=== PATIENT | female | born 1955 | race Caucasian/White ===

== ENCOUNTER 2021-04-29 08:37 | Emergency (ER) | payer MEDICARE, OTHER ==
[2021-04-29] MEDS ORDERED: Silver Nitrate Applicator Each TOP ONE (09:38)
--- NOTE | 2021-04-29 09:52 | EDM.PDOC ---
ED HPI GENERAL MEDICAL PROBLEM - General Chief Complaint: Laceration Stated Complaint: R MIDDLE FINGER CUT WITH KNIFE AND WON'T STOP BLEE Time Seen by Provider: 04/29/21 09:37 Source of Information: Reports: Patient, RN Notes Reviewed History Limitations: Reports: No Limitations - History of Present Illness INITIAL COMMENTS - FREE TEXT/NARRATIVE: 66-year-old female presents emergency department today following laceration she avulsed the distal tip of her middle finger on her right hand with a mandolin Right Finger-Middle Pain Score (Numeric/FACES): 2 - Related Data Allergies Allergy/AdvReac Type Severity Reaction Status Date / Time phenytoin [From Dilantin] Allergy Rash Verified 04/29/21 09:30 Home Meds: Home Meds Cartilage/Collagen/Bor/Hyalur [Joint Health Tablet] 1 tab PO DAILY 04/29/21 [History] Lisinopril/Hydrochlorothiazide [Lisinopril-Hctz 10-12.5 mg Tab] 1 tab PO DAILY 04/29/21 [History] Multivitamin 1 tab PO DAILY 04/29/21 [History] Ubidecarenone [COQ-10] 1 tab PO DAILY 04/29/21 [History] atorvaSTATin [Lipitor] 10 mg PO BEDTIME 04/29/21 [History] buPROPion HCL [Wellbutrin Xl] 300 mg PO DAILY 04/29/21 [History] Past Medical History HEENT History: Reports: Cataract, Impaired Vision Cardiovascular History: Reports: High Cholesterol, Hypertension Respiratory History: Reports: Sleep Apnea 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 - Past Surgical History HEENT Surgical History: Reports: Cataract Surgery GI Surgical History: Reports: Cholecystectomy Social & Family History - Tobacco Use Tobacco Use Status *Q: Never Tobacco User - Caffeine Use Caffeine Use: Reports: Coffee - Recreational Drug Use Recreational Drug Use: No ED ROS GENERAL - Review of Systems Review Of Systems: See Below Constitutional: Reports: No Symptoms Skin: Reports: Wound ED EXAM, SKIN/RASH Exam: See Below Text/Narrative:: Semination middle finger right hand she does have just the distal tip of the finger missing and the problem is it keeps oozing this is controlled with the tourniquet silver nitrate Exam Limited By: No Limitations General Appearance: Alert, WD/WN, No Apparent Distress Course - Vital Signs Last Recorded V/S: Last Vital Signs Temp 97 F 04/29/21 09:28 Pulse 91 04/29/21 09:28 Resp 14 04/29/21 09:28 BP 150/85 H 04/29/21 09:28 Pulse Ox 97 04/29/21 09:28 - Orders/Labs/Meds Meds: Medications Discontinued Medications Generic Name Dose Route Start Last Admin Trade Name Amrik PRN Reason Stop Dose Admin Silver Nitrate 1 each 04/29/21 09:38 04/29/21 09:51 Silver Nitrate Applicator Each TOP 04/29/21 09:39 1 each ONETIME ONE Administration Departure - Departure Time of Disposition: 10:22 Disposition: Home, Self-Care 01 Condition: Fair Clinical Impression: Traumatic amputation of tip of right middle finger Qualifiers: Encounter type: initial encounter Qualified Code(s): S68.112A - Complete traumatic metacarpophalangeal amputation of right middle finger, initial encounter - Discharge Information Instructions: Traumatic Finger Amputation Referrals: PCP,None [Primary Care Provider] - Forms: ED Department Discharge Additional Instructions: Continue to use the silver nitrate as needed, follow-up with your primary care as needed, call return to the emergency department worsening symptoms Sepsis Event Note (ED) - Evaluation Sepsis Screening Result: No Definite Risk - Focused Exam Vital Signs: Vital Signs Temp Pulse Resp BP Pulse Ox 04/29/21 09:28 97 F 91 14 150/85 H 97 - Assessment/Plan Plan: Assessment Acuity = acute Site and laterality = amputation distal tip of digit #3 right hand Etiology = trauma with a mandolin Manifestations = none Location of injury = Home Lab values = none Plan Follow-up primary care as needed This note was dictated using [employer] voice recognition software please call with any questions on syntax or grammar.
== END 2021-04-29 10:27 | disposition home or self-care (01) ==
LOC: JP.ED 08:37
DX: S68.622A Partial traumatic transphalangeal amputation of right middle finger, initial encounter (principal); E78.00 Pure hypercholesterolemia, unspecified; I10 Essential (primary) hypertension; M19.90 Unspecified osteoarthritis, unspecified site; Z88.8 Allergy status to other drugs, medicaments and biological substances; Z79.899 Other long term (current) drug therapy; W26.0XXA Contact with knife, initial encounter
CPT/HCPCS: 12001; 99282-25

== ENCOUNTER 2023-01-15 08:32 | Inpatient (IN) | payer MEDICARE, OTHER ==
[~2023-01-15 08:32] MED LIST: Bupivacaine 0.5% 50 ML MDV ONE
[2023-01-15] MEDS ORDERED: fentaNYL 100 MCG/2 ML SDV ONE (08:38)
[2023-01-15] MEDS ORDERED: Propofol 200 MG/20 ML SDV ONE ×2 (08:38→11:45)
[2023-01-15] MEDS ORDERED: Midazolam 1 MG/ML 2 ML SDV ONE (08:38)
[2023-01-15] MEDS ORDERED: Nozin Nasal Sanitizer NASBOTH ONE (09:00)
[2023-01-15 09:03] LABS: BASOPHILS ABSOLUTE AUTO 0.03 K/uL (0.00-0.10); BASOPHILS PERCENT AUTO 0.5 % (0.1-1.3); EOSINOPHILS ABSOLUTE AUTO 0.15 K/uL (0.00-0.40); EOSINOPHILS PERCENT AUTO 2.6 % (0.0-5.4); HEMATOCRIT 36.1 % (34.3-46.0); HEMOGLOBIN 12.2 g/dL (11.2-15.5); IMMATURE GRAN PERCENT AUTO 0.3 % (0.0-0.7); LYMPHOCYTES ABSOLUTE AUTO 2.08 K/uL (0.8-3.3); LYMPHOCYTES PERCENT AUTO 36.2 % (11.4-47.7); MEAN CORPUSCULAR HEMOGLOBIN 33.2 pg (31.6-35.5); MEAN CORPUSCULAR HGB CONC 33.8 g/dL (31.6-35.5); MEAN CORPUSCULAR VOLUME 98.4 fL (81.4-99.0); MONOCYTES ABSOLUTE AUTO 0.46 K/uL (0.20-0.90); NEUTROPHILS PERCENT AUTO 52.4 % (40.0-78.1); PLATELET COUNT,PLT 228 K/uL (130-375); RED BLOOD CELL COUNT 3.67 M/uL (3.77-5.24); WHITE BLOOD CELL COUNT,WBC 5.7 K/uL (3.2-11.0)
[2023-01-15 09:08] LABS: IMMATURE GRAN ABSOLUTE AUTO 0.02 K/uL (0.00-0.23)
[2023-01-15 09:23] LABS: A/G RATIO 1.1 (1.2-2.2); ALANINE AMINOTRANSFERASE,ALT 19 U/L (12-78); ALBUMIN 3.7 g/dL (3.4-5.0); ALKALINE PHOSPHATASE 97 U/L (46-116); ASPARTATE AMNIOTRANSFERASE,AST 18 U/L (15-37); BILIRUBIN TOTAL 0.5 mg/dL (0.2-1.0); BLOOD UREA NITROGEN,BUN 19 mg/dL (7-18); CALCIUM 9.5 mg/dL (8.5-10.1); CARBON DIOXIDE,CO2 32 mmol/L (21-32); CHLORIDE,CL 100 mmol/L (100-108); ESTIMATED GFR 61 mL/min (>60); GLUCOSE RANDOM 101 mg/dL (74-106); PROTEIN TOTAL,TP 7.1 g/dL (6.4-8.2); SODIUM,NA 140 mmol/L (140-148)
[2023-01-15] MEDS: Sodium Chloride 0.9% 1,000 ML IV SCH ×2 (09:48→22:11)
[2023-01-15] MEDS ORDERED: ceFAZolin 2 GM in Premix Bag 1 BAG IV ONE (10:00)
[2023-01-15] MEDS ORDERED: Docusate Sodium 100 MG Cap PO PRN (10:51)
[2023-01-15] MEDS ORDERED: Ondansetron 4 MG/2 ML SDV IVPUSH PRN (10:51)
[2023-01-15] MEDS ORDERED: Morphine 2 MG/ML SYRINGE IVPUSH PRN (10:51)
[2023-01-15] MEDS ORDERED: EPINEPHrine 1 MG/ML SDV IM PRN (11:15)
[2023-01-15] MEDS ORDERED: Sodium Chloride 0.9% 10 ML ONE ×3 (11:17→13:04)
[2023-01-15] MEDS ORDERED: Lactated Ringers 1,000 ML ONE (11:30)
[2023-01-15] MEDS ORDERED: ePHEDrine 50 MG/ML SDV ONE ×2 (11:34→13:04)
[2023-01-15] MEDS ORDERED: droPERidol 5 MG/2 ML SDV ONE (12:05)
[2023-01-15] MEDS: oxyCODONE 5 MG Tab PO PRN ×3 (13:54→20:57)
[2023-01-15] MEDS: Acetaminophen 325 MG Tab PO SCH ×3 (13:55→23:27)
[2023-01-15] MEDS: ceFAZolin 1 GM in Premix Bag 1 BAG IV SCH (17:20)
[2023-01-15] MEDS: Prochlorperazine 10 MG/2 ML SDV IVPUSH PRN (19:07)
[2023-01-15] MEDS: Aspirin 325 MG Tab.EC PO SCH (20:57)
[2023-01-15] MEDS: Nozin Nasal Sanitizer NASBOTH SCH (20:57)
[2023-01-15] MEDS: atorvaSTATin 10 MG Tab PO SCH (20:57)
[2023-01-15] MEDS: Ketoconazole 2% Crm 30 GM Tube TOP SCH (20:59)
[2023-01-16] MEDS: ceFAZolin 1 GM in Premix Bag 1 BAG IV SCH ×2 (02:11→10:40)
[2023-01-16] MEDS: oxyCODONE 5 MG Tab PO PRN ×3 (03:11→14:00)
[2023-01-16] MEDS: Acetaminophen 325 MG Tab PO SCH ×4 (05:07→23:15)
[2023-01-16] MEDS: Prochlorperazine 10 MG/2 ML SDV IVPUSH PRN (08:27)
[2023-01-16] MEDS ORDERED: Non-Formulary Medication 1 Each (Benazepril/Hydrochlorothiazide [Lotensin Hct 20-25 Mg Tab PO SCH (09:00)
[2023-01-16] MEDS: Potassium Chloride 10 MEQ Cap.ER PO SCH (09:34)
[2023-01-16] MEDS: Fluticasone NASAL Spray 16 GM Bottle NASBOTH SCH ×2 (09:34→09:38)
[2023-01-16] MEDS: Aspirin 325 MG Tab.EC PO SCH ×2 (09:34→20:30)
[2023-01-16] MEDS: Nozin Nasal Sanitizer NASBOTH SCH ×2 (09:34→20:30)
[2023-01-16] MEDS: buPROPion 150 MG Tab.ER PO SCH (09:35)
[2023-01-16] MEDS: Ketoconazole 2% Crm 30 GM Tube TOP SCH ×2 (09:35→20:30)
[2023-01-16] MEDS: Hydrochlorothiazide 25 MG Tab PO SCH (09:47)
[2023-01-16] MEDS: Lisinopril 20 MG Tab PO SCH (09:47)
[2023-01-16] MEDS: atorvaSTATin 10 MG Tab PO SCH (20:30)
[2023-01-17] MEDS: Acetaminophen 325 MG Tab PO SCH (05:17)
[2023-01-17] MEDS: Potassium Chloride 10 MEQ Cap.ER PO SCH (08:08)
[2023-01-17] MEDS: Nozin Nasal Sanitizer NASBOTH SCH (08:08)
[2023-01-17] MEDS: buPROPion 150 MG Tab.ER PO SCH (08:09)
[2023-01-17] MEDS: Fluticasone NASAL Spray 16 GM Bottle NASBOTH SCH (08:09)
[2023-01-17] MEDS: Aspirin 325 MG Tab.EC PO SCH (08:09)
[2023-01-17] MEDS: Hydrochlorothiazide 25 MG Tab PO SCH (08:10)
[2023-01-17] MEDS: Lisinopril 20 MG Tab PO SCH (08:14)
[2023-01-17] MEDS: Ketoconazole 2% Crm 30 GM Tube TOP SCH (08:21)
[2023-01-17] MEDS ORDERED: Acetaminophen/Codeine 300-30 MG Tab PO PRN (11:38)
== END 2023-01-17 13:48 | disposition home or self-care (01) | DRG 470 ==
LOC: JP.SDS 08:32 → JP.MS 10:51 → JP.SDS 01-16 09:04
PROVIDERS: ADMIT Specialist; ATTEND Specialist
PROC: 0SRB01A Replacement of Left Hip Joint with Metal Synthetic Substitute, Uncemented, Open Approach (ICD-10-PCS; principal; 2023-01-15)
DX: M16.12 Unilateral primary osteoarthritis, left hip (principal); I10 Essential (primary) hypertension; E78.5 Hyperlipidemia, unspecified; J44.9 Chronic obstructive pulmonary disease, unspecified; Z79.899 Other long term (current) drug therapy; Z88.8 Allergy status to other drugs, medicaments and biological substances; Z90.710 Acquired absence of both cervix and uterus
CPT/HCPCS: 36415; 72170; 80053; 85025; 86850; 86900; 86901; 97110-GP; 97116-GP; 97161-GP; 97165-GO; 97530-GP; 97535-GO; A9270-GY; C1713; C1776; J0690; J0780; J1790; J2250; J2270; J2704; J3010; J3490; J7030; J7120

== ENCOUNTER 2023-01-27 14:39 | Emergency (ER) | payer MEDICARE, OTHER | END 2023-01-27 16:53 | disposition home or self-care (01) | LOC: JP.ED 14:39 | DX: M25.552 Pain in left hip (principal); I10 Essential (primary) hypertension; E78.00 Pure hypercholesterolemia, unspecified; Z91.030 Bee allergy status; Z88.8 Allergy status to other drugs, medicaments and biological substances; Z79.899 Other long term (current) drug therapy; Z96.642 Presence of left artificial hip joint | CPT/HCPCS: 73502-26-LT; 73502-LT; 99283 ==

== ENCOUNTER 2023-02-26 10:44 | Day surgery (SDC) | payer MEDICARE, OTHER ==
[~2023-02-26 10:44] MED LIST changes: -Bupivacaine 0.5% 50 ML MDV ONE; +Midazolam 1 MG/ML 2 ML SDV ONE; +Propofol 200 MG/20 ML SDV ONE; +fentaNYL 50 MCG/ML SDV ONE
[2023-02-26] MEDS: Lactated Ringers 1,000 ML IV SCH ×2 (11:07→18:35)
[2023-02-26 11:11] LABS: BASOPHILS ABSOLUTE AUTO 0.04 K/uL (0.00-0.10); BASOPHILS PERCENT AUTO 0.6 % (0.1-1.3); EOSINOPHILS ABSOLUTE AUTO 0.15 K/uL (0.00-0.40); EOSINOPHILS PERCENT AUTO 2.3 % (0.0-5.4); HEMATOCRIT 36.9 % (34.3-46.0); HEMOGLOBIN 12.7 g/dL (11.2-15.5); IMMATURE GRAN ABSOLUTE AUTO 0.02 K/uL (0.00-0.23); IMMATURE GRAN PERCENT AUTO 0.3 % (0.0-0.7); LYMPHOCYTES ABSOLUTE AUTO 2.34 K/uL (0.8-3.3); LYMPHOCYTES PERCENT AUTO 35.3 % (11.4-47.7); MEAN CORPUSCULAR HEMOGLOBIN 32.8 pg (31.6-35.5); MEAN CORPUSCULAR HGB CONC 34.4 g/dL (31.6-35.5); MEAN CORPUSCULAR VOLUME 95.3 fL (81.4-99.0); MONOCYTES ABSOLUTE AUTO 0.67 K/uL (0.20-0.90); MONOCYTES PERCENT AUTO 10.1 % (3.3-12.6); NEUTROPHILS ABSOLUTE AUTO 3.41 K/uL (1.0-7.6); NEUTROPHILS PERCENT AUTO 51.4 % (40.0-78.1); PLATELET COUNT,PLT 341 K/uL (130-375); RED BLOOD CELL COUNT 3.87 M/uL (3.77-5.24); WHITE BLOOD CELL COUNT,WBC 6.6 K/uL (3.2-11.0)
[2023-02-26] MEDS ORDERED: Nozin Nasal Sanitizer NASBOTH ONE (11:15)
[2023-02-26 11:53] LABS: ALANINE AMINOTRANSFERASE,ALT 19 U/L (12-78); ALBUMIN 3.5 g/dL (3.4-5.0); ALKALINE PHOSPHATASE 126 U/L (46-116); ASPARTATE AMNIOTRANSFERASE,AST 16 U/L (15-37); BILIRUBIN TOTAL 0.5 mg/dL (0.2-1.0); BLOOD UREA NITROGEN,BUN 15 mg/dL (7-18); CALCIUM 9.4 mg/dL (8.5-10.1); CARBON DIOXIDE,CO2 31 mmol/L (21-32); CHLORIDE,CL 99 mmol/L (100-108); CREATININE 0.8 mg/dL (0.6-1.0); EST CRCL DRUG DOSING (CG) 61.26 mL/min; ESTIMATED GFR 79 mL/min (>60); GLUCOSE RANDOM 95 mg/dL (74-106); POTASSIUM,K 3.8 mmol/L (3.6-5.2); SODIUM,NA 137 mmol/L (140-148)
[2023-02-26 11:57] LABS: ANION GAP 10.8 mmol/L (5.0-14.0)
[2023-02-26] MEDS: ceFAZolin 2 GM in Premix Bag 1 BAG IV ONE ×2 (15:50→19:27)
[2023-02-26] MEDS ORDERED: Lactated Ringers 1,000 ML ONE (16:15)
[2023-02-26] MEDS ORDERED: Midazolam 1 MG/ML 2 ML SDV ONE (16:17)
[2023-02-26] MEDS ORDERED: Phenylephrine 1% 10 MG/ML SDV ONE (16:18)
[2023-02-26] MEDS ORDERED: Sodium Chloride 0.9% 10 ML ONE (16:18)
[2023-02-26] MEDS ORDERED: Propofol 200 MG/20 ML SDV ONE (16:23)
[2023-02-26] MEDS ORDERED: ePHEDrine 50 MG/ML SDV ONE (16:26)
[2023-02-26] MEDS ORDERED: Ondansetron 4 MG Tab.DIS PO PRN (17:16)
[2023-02-26] MEDS ORDERED: Morphine 2 MG/ML SYRINGE IVPUSH PRN (17:16)
[2023-02-26] MEDS ORDERED: Sodium Chloride 0.9% 250 ML ONE (17:20)
[2023-02-26] MEDS ORDERED: traMADol 50 MG Tab PO PRN (17:24)
[2023-02-26] MEDS ORDERED: Acetaminophen/Codeine 300-30 MG Tab PO PRN (17:29)
[2023-02-26] MEDS ORDERED: Acetaminophen 325 MG Tab PO SCH (17:30)
[2023-02-26] MEDS ORDERED: Acetaminophen 325 MG Tab PO PRN (17:32)
[2023-02-26] MEDS: Ketorolac 15 MG/ML SDV IVPUSH SCH (18:34)
[2023-02-26] MEDS: ceFAZolin 1 GM in Sodium Chloride 0.9% 50 ML IV SCH (18:34)
[2023-02-26] MEDS: Docusate Sodium 100 MG Cap PO SCH (20:10)
[2023-02-26] MEDS: Nozin Nasal Sanitizer NASBOTH SCH (20:10)
[2023-02-26] MEDS ORDERED: atorvaSTATin 10 MG Tab PO SCH (21:00)
[2023-02-26] MEDS: oxyCODONE 5 MG Tab PO PRN (21:15)
[2023-02-27] MEDS: Ketorolac 15 MG/ML SDV IVPUSH SCH (01:49)
[2023-02-27] MEDS: ceFAZolin 1 GM in Sodium Chloride 0.9% 50 ML IV SCH (01:51)
[2023-02-27] MEDS: oxyCODONE 5 MG Tab PO PRN (02:08)
[2023-02-27] MEDS ORDERED: Prochlorperazine 10 MG Tab PO PRN (03:38)
[2023-02-27] MEDS ORDERED: EPINEPHrine 1 MG/ML SDV IM PRN (07:03)
[2023-02-27] MEDS: Nozin Nasal Sanitizer NASBOTH SCH (08:08)
[2023-02-27] MEDS: Docusate Sodium 100 MG Cap PO SCH ×2 (08:13→08:16)
[2023-02-27] MEDS ORDERED: buPROPion 150 MG Tab.ER PO SCH (09:00)
[2023-02-27] MEDS ORDERED: Fluticasone NASAL Spray 16 GM Bottle NAS SCH (09:00)
[2023-02-27] MEDS ORDERED: Lisinopril 20 MG Tab PO SCH (09:00)
[2023-02-27] MEDS ORDERED: Hydrochlorothiazide 25 MG Tab PO SCH (09:00)
== END 2023-02-27 13:19 | disposition home or self-care (01) ==
LOC: JP.SDS 10:44 → UNDOADMOB 17:17 → JP.MS 17:17 → JP.SDS 02-27 13:19 → UNDODISOB 02-27 13:19
PROVIDERS: ATTEND Specialist
DX: M24.452 Recurrent dislocation, left hip (principal); I10 Essential (primary) hypertension; K21.9 Gastro-esophageal reflux disease without esophagitis; E78.5 Hyperlipidemia, unspecified; M19.90 Unspecified osteoarthritis, unspecified site; E66.9 Obesity, unspecified; Z88.8 Allergy status to other drugs, medicaments and biological substances; Z96.642 Presence of left artificial hip joint
CPT/HCPCS: 27137; 36415; 80053; 85025; 97110; 97161; A9270; C1713; C1776; J0690; J1885; J2250; J2370; J2704; J3010; J3490; J7050; J7120; Q0164

== ENCOUNTER 2025-01-24 07:39 | Day surgery (SDC) | payer MEDICARE, OTHER ==
[~2025-01-24 07:39] MED LIST changes: -Midazolam 1 MG/ML 2 ML SDV ONE; +fentaNYL 100 MCG/2 ML SDV ONE; -fentaNYL 50 MCG/ML SDV ONE
[2025-01-24] MEDS: Lactated Ringers 1,000 ML IV SCH (08:37)
[2025-01-24] MEDS ORDERED: Dexamethasone 4 MG/ML SDV ONE (09:16)
[2025-01-24] MEDS ORDERED: droPERidol 5 MG/2 ML SDV ONE (09:16)
== END 2025-01-24 11:17 | disposition home or self-care (01) ==
LOC: JP.SDS 07:39
PROVIDERS: ATTEND Surgery
DX: Z12.11 Encounter for screening for malignant neoplasm of colon (principal); I10 Essential (primary) hypertension; Z85.038 Personal history of other malignant neoplasm of large intestine; Z86.0100 Personal history of colon polyps, unspecified; Z85.43 Personal history of malignant neoplasm of ovary
CPT/HCPCS: G0105; J1100; J1790; J2704; J3010; J7120; 00812-QZ